=== PATIENT | male | born 1955 | race Caucasian/White ===

== ENCOUNTER 2018-11-11 11:59 | Outpatient (CLI) | payer OTHER ==
[~2018-11-11 11:59] MED LIST: ATACAND16 MG; [UNRECOGNIZED DRUG - OTHER]
== END 2018-11-11 17:00 | disposition home or self-care (01) ==
LOC: MRI 11:59
DX: M54.17 Radiculopathy, lumbosacral region (principal); M54.5 Low back pain; M54.6 Pain in thoracic spine; M25.012 Hemarthrosis, left shoulder; M25.011 Hemarthrosis, right shoulder
CPT/HCPCS: 72148

== ENCOUNTER → 2020-03-14 | Outpatient (CLI) | payer OTHER | END | disposition home or self-care (01) | LOC: LAB 11:29 | PROVIDERS: ATTEND Radiology Diagnostic Radiology | DX: R31.29 Other microscopic hematuria (principal) ==

== ENCOUNTER → 2020-03-14 | Outpatient (CLI) | payer OTHER | END | disposition home or self-care (01) | LOC: TOM 03-13 11:21 | PROVIDERS: ATTEND Radiology Diagnostic Radiology | DX: R10.84 Generalized abdominal pain (principal); D41.02 Neoplasm of uncertain behavior of left kidney ==

== ENCOUNTER 2020-08-12 10:49 | Outpatient (CLI) | payer OTHER | END 2020-08-12 14:32 | disposition home or self-care (01) | LOC: TOM 10:49 | PROVIDERS: ATTEND Radiology Diagnostic Radiology | DX: N28.89 Other specified disorders of kidney and ureter (principal); R10.84 Generalized abdominal pain ==

== ENCOUNTER 2021-06-10 14:13 | Outpatient (CLI) | payer OTHER | END 2021-06-10 15:00 | disposition home or self-care (01) | LOC: RAD 14:13 | PROVIDERS: ATTEND Radiology Diagnostic Radiology | DX: N20.0 Calculus of kidney (principal); R10.84 Generalized abdominal pain ==